=== PATIENT | female | born 1955 | race Native Hawaiian/Other Pacific Islander ===

== ENCOUNTER 2017-03-06 14:14 | Emergency (ER) | payer BC, MEDICAID ==
[2017-03-06 14:25] VITALS: BP 120/83
[2017-03-06] MEDS ORDERED: TETANUS/DIPHTHERIA/PERTUSSIS 0.5 ML SYRINGE IM ONE ×2 (15:29→15:41)
[2017-03-06] MEDS ORDERED: BUFFERED LIDOCAINE 10 ML SYRINGE ONE (15:34)
--- NOTE | 2017-03-06 15:54 | ED Physician Documentation ---
PD HPI UPPER EXT INJURY - Stated complaint Stated Complaint: R HAND LAC - Chief complaint Chief Complaint: Laceration - History obtained from History obtained from: Patient - History of Present Illness Location: Right, Hand Type of injury: Fall (GLF and hit hand on ground and lac on ?sharp rock), Laceration Timing - onset: Today Review of Systems Constitutional: reports: Reviewed and negative Throat: reports: Reviewed and negative Cardiac: reports: Reviewed and negative PD PAST MEDICAL HISTORY - Past Medical History Past Medical History: Yes GI: GERD - Past Surgical History Past Surgical History: Yes General: Cholecystectomy - Present Medications Home Medications: Ambulatory Orders Medication Instructions Recorded Confirmed Omeprazole [PriLOSEC] 20 mg PO DAILY 08/24/15 08/24/15 HYDROcod/ACETAM 5/325 [[place] 5/325] 1 - 2 ea PO Q6H PRN #15 tablet 09/18/16 Minocycline HCl 0 mg PO 09/18/16 - Allergies Allergies/Adverse Reactions: Allergies Allergy/AdvReac Type Severity Reaction Status Date / Time bee venom protein (honey bee) Allergy Edema Verified 03/06/17 14:26 codeine AdvReac Itching Verified 03/06/17 14:25 - Social History Does the pt smoke?: No Smoking Status: Never smoker Does the pt drink ETOH?: No Does the pt have substance abuse?: No - Immunizations Immunizations are current?: No Immunizations: TDAP >10years/unknown - POLST Patient has POLST: No PD ED PE NORMAL - Vitals Vital signs reviewed: Yes - General General: Alert and oriented X 3, No acute distress - Extremities Extremities: Other (3cm v-shaped lac into subq tissue in R hand themar area NVI in hand.) - Neuro Neuro: Alert and oriented X 3, Normal speech - Psych Psych: Normal mood, Normal affect Results - Vitals Vitals: Vital Signs - 24 hr 03/06/17 14:20 Temperature 36.5 C Heart Rate 95 Respiratory 18 Rate Blood Pressure 120/83 H O2 Saturation 99 Oxygen O2 Source Room air Procedures - Laceration (location) R hand Length in cm: 3 Wound type: Irregular, Flap, Into subcut fat Neurovascular status: Sensory intact, Motor intact, Vascular intact Tendon involvement: Tendon intact. No: Tendon Injury Anesthesia: Lidocaine 1%, With bicarb Wound Preparation: Irrigated copiously NS Skin layer closure: Nylon, Interrupted, Size #-0 - enter number (4-0), Sutures - enter # (8) Other: Patient tolerated well, No complications, Neurovascular intact, Tetanus booster given Complexity: Simple Departure - Departure Disposition: 01 Home, Self Care Clinical Impression: Hand laceration Qualifiers: Encounter type: initial encounter Foreign body presence: without foreign body Laterality: right Qualified Code(s): S61.411A - Laceration without foreign body of right hand, initial encounter Condition: Good Record reviewed to determine appropriate education?: Yes Instructions: ED Laceration Hand Comments: Wash the wound briefly but in general keep it dry and covered. Come back for any signs of infection which would include: Redness, swelling, drainage, increased pain, or fevers. Followup with your doctor in 10-14 days for suture removal. Your blood pressure was elevated today on check in to the emergency department. This does not mean that you have hypertension, it is a common phenomenon to check into the emergency department and have elevated blood pressure. I recommend that you see your primary care physician within the week to have it rechecked when you're feeling better.
== END 2017-03-06 16:14 | disposition home or self-care (01) ==
LOC: ED 14:14
DX: S61.411A Laceration without foreign body of right hand, initial encounter (principal); W19.XXXA Unspecified fall, initial encounter; K21.9 Gastro-esophageal reflux disease without esophagitis; Z90.49 Acquired absence of other specified parts of digestive tract; Z23 Encounter for immunization; R03.0 Elevated blood-pressure reading, without diagnosis of hypertension
CPT/HCPCS: 12002; 90471; 99283

== ENCOUNTER 2017-11-01 16:17 | Outpatient (CLI) | payer BC, MEDICAID ==
[2017-11-01 19:10] LABS: BASOPHILS % (AUTO) 0.5 %; EOSINOPHILS # (AUTO) 0.2 10^3/uL (0.0-0.7); EOSINOPHILS % (AUTO) 2.7 %; HGB - HEMOGLOBIN 13.4 g/dL (12.0-16.0); LYMPHOCYTES # (AUTO) 3.2 10^3/uL (1.5-3.5); LYMPHOCYTES % (AUTO) 46.8 %; MEAN CORPUSCULAR HEMOGLOBIN 28.4 pg (27.0-31.0); MEAN CORPUSCULAR HGB CONC 33.5 g/dL (32.0-36.0); MEAN PLATELET VOLUME 8.5 fL (7.9-10.8); MONOCYTES # (AUTO) 0.7 10^3/uL (0.0-1.0); MONOCYTES % (AUTO) 9.7 %; NEUTROPHILS # (AUTO) 2.8 10^3/uL (1.5-6.6); NEUTROPHILS % (AUTO) 40.3 %; PLT - PLATELET COUNT 266 10^3/uL (130-450); RED CELL DISTRIBUTION WIDTH 13.8 % (12.0-15.0); WHITE BLOOD COUNT 6.9 x10^3/uL (4.8-10.8)
[2017-11-01 19:37] LABS: ALBUMIN 4.1 g/dL (3.2-5.5); ALBUMIN/GLOBULIN RATIO 1.2 (1.0-2.2); ALKALINE PHOSPHATASE 72 IU/L (42-121); ALT ALANINE AMINOTRANSFERASE 19 IU/L (10-60); AST ASPARTATE AMINOTRANSFERASE 20 IU/L (10-42); BILIRUBIN,TOTAL 0.2 mg/dL (0.2-1.0); BUN - BLOOD UREA NITROGEN 24 mg/dL (6-20); CALCIUM 9.3 mg/dL (8.5-10.3); CARBON DIOXIDE - CO2 27 mmol/L (21-32); CHLORIDE 105 mmol/L (101-111); CHOL/HDL RATIO 4.4 (<4.4); CHOLESTEROL 242 mg/dL; CREATININE 0.7 mg/dL (0.4-1.0); GFR - MDRD 85 (>89); GLUCOSE 96 mg/dL (70-100); HDL CHOLESTEROL 55 mg/dL; LDL CHOLESTEROL,CALCULATED 135 mg/dL; LDL/HDL RATIO 2.5 (<4.4); SODIUM 138 mmol/L (135-145); TOTAL PROTEIN 7.4 g/dL (6.7-8.2); VLDL CHOLESTEROL 52 mg/dL
[2017-11-01 19:38] LABS: HEMOGLOBIN A1C 0.54 g/dL; HEMOGLOBIN A1C % 5.4 % (4.6-6.2)
== END 2017-11-01 16:18 | disposition home or self-care (01) ==
LOC: LAB.WCP 16:17
PROVIDERS: ATTEND Family Medicine
DX: Z00.00 Encounter for general adult medical examination without abnormal findings (principal)
CPT/HCPCS: 36415; 80053; 80061; 83036; 83721; 84443; 85025

== ENCOUNTER 2018-11-17 13:47 | Emergency (ER) | payer BC, MEDICAID ==
[2018-11-17 13:54] VITALS: BP 126/91
[2018-11-17] MEDS ORDERED: BUPIVACAINE 0.5% PF 10 ML VIAL SUBQ STA (14:07)
[2018-11-17] MEDS ORDERED: TRIAMCINOLONE 40 MG/ML VIAL IM STA (14:07)
--- NOTE | 2018-11-17 14:10 | ED Physician Documentation ---
PD HPI UPPER EXT INJURY - Stated complaint Stated Complaint: L SHOULDER PAIN - Chief complaint Chief Complaint: Trauma Ext - History obtained from History obtained from: Patient - History of Present Illness Location: Left (Is a 63-year-old woman with history of problems with the left rotator cuff. After doing some heavy work around the house 2 days ago she has much more significant shoulder pain and difficulty moving. She does not want any narcotic pain medication.) Review of Systems Constitutional: reports: Reviewed and negative Cardiac: reports: Reviewed and negative Respiratory: reports: Reviewed and negative PD PAST MEDICAL HISTORY - Past Medical History GI: GERD - Past Surgical History Past Surgical History: Yes General: Cholecystectomy - Present Medications Home Medications: Ambulatory Orders Medication Instructions Recorded Confirmed Omeprazole [PriLOSEC] 20 mg PO DAILY 08/24/15 08/24/15 HYDROcod/ACETAM 5/325 [[place] 5/325] 1 - 2 ea PO Q6H PRN #15 tablet 09/18/16 Minocycline HCl 0 mg PO 09/18/16 Meloxicam [Mobic] 7.5 mg PO BID PRN #20 tablet 11/17/18 - Allergies Allergies/Adverse Reactions: Allergies Allergy/AdvReac Type Severity Reaction Status Date / Time bee venom protein (honey bee) Allergy Edema Verified 11/17/18 13:54 codeine AdvReac Itching Verified 11/17/18 13:54 - Social History Does the pt smoke?: No Smoking Status: Never smoker Does the pt drink ETOH?: No Does the pt have substance abuse?: No - Immunizations Immunizations are current?: No Immunizations: TDAP >10years/unknown - POLST Patient has POLST: No PD ED PE NORMAL - Vitals Vital signs reviewed: Yes - General General: Alert and oriented X 3, No acute distress - Extremities Extremities: Other (There is no specific tenderness or warmth of the left shoulder. She does have significant difficulties with abduction but does much better passively.) - Neuro Neuro: Alert and oriented X 3, Normal speech Results - Vitals Vitals: Vital Signs - 24 hr 11/17/18 13:53 Temperature 36.7 C Heart Rate 86 Respiratory 16 Rate Blood Pressure 126/91 H O2 Saturation 100 Oxygen O2 Source Room air Procedures - General procedure General procedure: After discussion of risks and benefits and verbal informed consent was obtained a 22-gauge needle was used to inject a mixture of 10 mL of 0.5% Marcaine and 0.75 mL of Kenalog totaling 30 mg via a posterior approach to the left glenohumeral joint. The patient tolerated this well. Departure - Departure Disposition: 01 Home, Self Care Clinical Impression: Left rotator cuff tear arthropathy Condition: Good Record reviewed to determine appropriate education?: Yes Instructions: ED Torn Rotator Cuff Prescriptions: Meloxicam [Mobic] 7.5 mg PO BID PRN #20 tablet PRN Reason: Pain Comments: Follow-up with your orthopedic surgeon as soon as possible, return for new or worsening symptoms.
== END 2018-11-17 14:50 | disposition home or self-care (01) ==
LOC: ED 13:47
DX: M12.812 Other specific arthropathies, not elsewhere classified, left shoulder (principal)
CPT/HCPCS: 20610; 99283

== ENCOUNTER 2019-06-12 19:36 | Emergency (ER) | payer BC, MEDICAID ==
[2019-06-12 19:48] VITALS: BP 138/107
== END 2019-06-12 20:20 | disposition left against medical advice (07) ==
LOC: ED 19:36
DX: Z53.21 Procedure and treatment not carried out due to patient leaving prior to being seen by health care provider (principal)

== ENCOUNTER 2021-01-08 08:00 | Outpatient (CLI) | payer BC, OTHER ==
[2021-01-08 18:28] LABS: BASOPHILS % (AUTO) 0.7 %; EOSINOPHILS # (AUTO) 0.3 10^3/uL (0.0-0.7); EOSINOPHILS % (AUTO) 4.3 %; HCT - HEMATOCRIT 38.4 % (37.0-47.0); HGB - HEMOGLOBIN 12.7 g/dL (12.0-16.0); LYMPHOCYTES # (AUTO) 2.6 10^3/uL (1.5-3.5); LYMPHOCYTES % (AUTO) 42.6 %; MEAN CORPUSCULAR HEMOGLOBIN 29.5 pg (27.0-31.0); MEAN CORPUSCULAR HGB CONC 33.1 g/dL (32.0-36.0); MEAN CORPUSCULAR VOLUME 89.1 fL (81.0-99.0); MEAN PLATELET VOLUME 10.4 fL (7.9-10.8); MONOCYTES # (AUTO) 0.7 10^3/uL (0.0-1.0); NEUTROPHILS # (AUTO) 2.5 10^3/uL (1.5-6.6); NEUTROPHILS % (AUTO) 40.2 %; PLT - PLATELET COUNT 257 10^3/uL (130-450); RED BLOOD COUNT 4.31 10^6/uL (4.20-5.40); RED CELL DISTRIBUTION WIDTH 13.2 % (12.0-15.0); WHITE BLOOD COUNT 6.1 x10^3/uL (4.8-10.8)
[2021-01-08 19:28] LABS: ALBUMIN 4.3 g/dL (3.2-5.5); ALBUMIN/GLOBULIN RATIO 1.7 (1.0-2.2); ALKALINE PHOSPHATASE 64 IU/L (42-121); ALT ALANINE AMINOTRANSFERASE 19 IU/L (10-60); AST ASPARTATE AMINOTRANSFERASE 24 IU/L (10-42); BILIRUBIN,TOTAL 0.5 mg/dL (0.2-1.0); BUN - BLOOD UREA NITROGEN 23 mg/dL (6-20); CALCIUM 9.6 mg/dL (8.5-10.3); CARBON DIOXIDE - CO2 25 mmol/L (21-32); CHLORIDE 110 mmol/L (101-111); CHOL/HDL RATIO 3.4 (<4.4); CHOLESTEROL 259 mg/dL; CREATININE 0.6 mg/dL (0.4-1.0); GFR - MDRD 101 (>89); GLUCOSE 90 mg/dL (70-100); HDL CHOLESTEROL 77 mg/dL; LDL CHOLESTEROL,CALCULATED 163 mg/dL; LDL/HDL RATIO 2.1 (<4.4); POTASSIUM 4.2 mmol/L (3.5-5.0); SODIUM 145 mmol/L (135-145); TOTAL PROTEIN 6.9 g/dL (6.7-8.2); TRIGLYCERIDES 95 mg/dL; VLDL CHOLESTEROL 19 mg/dL
[2021-01-08 19:47] LABS: THYROID STIMULATING HORMONE 4.81 uIU/mL (0.34-5.60)
[2021-01-08 20:01] LABS: CRP - C-REACTIVE PROTEIN < 1.0 mg/dL (0-1.0)
[2021-01-08 20:42] LABS: ESTIMATED AVERAGE GLUCOSE 108 mg/dL (70-100); HEMOGLOBIN A1c% 5.4 % (4.27-6.07)
== END 2021-01-08 23:59 | disposition home or self-care (01) ==
LOC: LAB.WCP 08:00
PROVIDERS: ATTEND Family Medicine
DX: E78.5 Hyperlipidemia, unspecified (principal); E66.9 Obesity, unspecified; R94.6 Abnormal results of thyroid function studies; K21.9 Gastro-esophageal reflux disease without esophagitis; M06.9 Rheumatoid arthritis, unspecified
CPT/HCPCS: 36415; 80053; 80061; 83036; 83721; 84443; 85025; 85651; 86140

== ENCOUNTER 2021-03-10 10:49 | Outpatient (CLI) | payer BC, MEDICARE | END 2021-03-10 10:50 | disposition home or self-care (01) | LOC: LAB 10:49 | PROVIDERS: ATTEND Physician Assistant | DX: Z01.812 Encounter for preprocedural laboratory examination (principal); Z20.822 Contact with and (suspected) exposure to COVID-19 ==

== ENCOUNTER 2021-07-08 20:04 | Emergency (ER) | payer BC, MEDICARE ==
[2021-07-08 20:28] VITALS: BP 131/84
--- NOTE | 2021-07-08 21:28 | ED Physician Documentation ---
History of Present Illness - Stated complaint Stated Complaint: LT FOOT INJ - Chief complaint Chief Complaint: Trauma Ext - History obtained from History obtained from: Patient - Additonal information Additional information: Patient states that she tripped and fell cleaning out her dog canal today and sustained a left foot injury. She is unsure exactly what happened but states that she is now nonweightbearing and has quite severe pain over the top of the left foot and the left ankle. Denies any other injuries, no head injury, neck injury upper extremity injuries. She has not attempted any medication or other treatment prior to arrival. Patient notes that she just recently returned from [place] today and states that she did not have any pain or swelling of the leg prior to this injury. Review of Systems Constitutional: reports: Reviewed and negative Cardiac: reports: Reviewed and negative Respiratory: reports: Reviewed and negative GI: reports: Reviewed and negative : reports: Reviewed and negative Skin: reports: Reviewed and negative Musculoskeletal: reports: Extremity pain (left foot and ankle pain) Neurologic: reports: Reviewed and negative Psychiatric: reports: Reviewed and negative PD PAST MEDICAL HISTORY - Past Medical History GI: GERD - Past Surgical History Past Surgical History: Yes General: Cholecystectomy - Present Medications Home Medications: Ambulatory Orders Medication Instructions Recorded Confirmed Omeprazole [PriLOSEC] 20 mg PO DAILY 08/24/15 08/24/15 HYDROcod/ACETAM 5/325 [[place] 5/325] 1 - 2 ea PO Q6H PRN #15 tablet 09/18/16 Minocycline HCl 0 mg PO 09/18/16 Meloxicam [Mobic] 7.5 mg PO BID PRN #20 tablet 11/17/18 oxyCODONE [Roxicodone] 5 mg PO Q4-6H #12 tablet 07/08/21 - Allergies Allergies/Adverse Reactions: Allergies Allergy/AdvReac Type Severity Reaction Status Date / Time bee venom protein (honey bee) Allergy Edema Verified 07/08/21 20:28 bupropion [From Wellbutrin] Allergy Unknown Verified 07/08/21 20:28 codeine AdvReac Itching Verified 07/08/21 20:28 - Social History Does the pt smoke?: No Smoking Status: Never smoker Does the pt drink ETOH?: No Does the pt have substance abuse?: No - Immunizations Immunizations are current?: No Immunizations: TDAP >10years/unknown - POLST Patient has POLST: No PD ED PE NORMAL - Vitals Vital signs reviewed: Yes - General General: Alert and oriented X 3, No acute distress, Well developed/nourished - HEENT HEENT: Atraumatic, Moist mucous membranes - Cardiac Cardiac: RRR, No murmur - Respiratory Respiratory: No respiratory distress, Clear bilaterally - Derm Derm: Normal color, Warm and dry, No rash - Extremities Extremities: No deformity, No calf tenderness / cord, Other (Left foot and ankle swelling, no erythema. Tenderness left lat malleolus and across the dorsum of the foot. No obvious deformities, pulses 2+, foot in normothermic. Moves toes w/o difficulty, no other extremity injuries) - Neuro Neuro: Alert and oriented X 3, No motor deficit, No sensory deficit, Normal speech Eye Opening: Spontaneous Motor: Obeys Commands Verbal: Oriented GCS Score: 15 - Psych Psych: Normal mood, Normal affect Results - Vitals Vitals: Vital Signs - 24 hr 07/08/21 20:24 Temperature 36.5 C Heart Rate 68 Respiratory 14 Rate Blood Pressure 131/84 H O2 Saturation 99 Oxygen O2 Source Room air PD MEDICAL DECISION MAKING - ED course Complexity details: reviewed results, considered differential, d/w patient ED course: 66-year-old female who presented with left foot pain after a fall. She has pain over the dorsum of the foot and the left lateral malleolus. I obtained a x-ray of her ankle and foot and this showed possible avulsion fracture of the talus and medial malleolus. She was given a dose of oxycodone here as well as 600 mg of ibuprofen with some improvement in her pain. We placed her in a splint and advised to keep her foot elevated, utilize cool compress and follow-up with her primary care provider if no improvement in 1 to 2 weeks. Patient states intention to follow-up with orthopedic surgeon in [place] if possible. Departure - Departure Disposition: 01 Home, Self Care Clinical Impression: Talar fracture Qualifiers: Encounter type: initial encounter Fracture type: closed Fracture morphology: avulsion Fracture alignment: nondisplaced Laterality: left Qualified Code(s): S92.155A - Nondisplaced avulsion fracture (chip fracture) of left talus, initial encounter for closed fracture Medial malleolar fracture Qualifiers: Encounter type: initial encounter Fracture type: closed Fracture alignment: nondisplaced Laterality: left Qualified Code(s): S82.55XA - Nondisplaced fracture of medial malleolus of left tibia, initial encounter for closed fracture Condition: Good Instructions: ED Fx Foot, ED Splint Care Fiberglass Follow-Up: Cecile Villa MD [Physician No Access] - Manuelito Lopez MD [Provider Admit Priv/Credential] - Prescriptions: oxyCODONE [Roxicodone] 5 mg PO Q4-6H #12 tablet Comments: As we discussed you sustained a small avulsion fracture of the talus as well as likely the medial malleolus. I have placed you in a splint and advised you not to weight-bear until you follow-up with Ortho. Per your request we referred you to Dr. Villa but I have also referred you to the local orthopedic surgeon Dr. Lopez if you are unable to get to [place]. Please utilize crutches, do not weight-bear, keep foot elevated whenever possible and utilize cool compress for the next 2 to 3 days to help with the swelling. I have given you a prescription for oxycodone and you may continue ibuprofen at home as well. Oxycodone is a narcotic and can be habit-forming, you should not drive or operate heavy machinery on this medication, do not drink or take other respiratory suppressants simultaneously due to risk of respiratory distress. Return to the ER if you have new or worsening symptoms.
[2021-07-08] MEDS ORDERED: IBUPROFEN 600 MG TABLET PO STA (22:17)
[2021-07-08] MEDS ORDERED: oxyCODONE 5 MG TABLET PO STA (22:17)
[2021-07-08] MEDS ORDERED: oxyCODONE/ACET 5/325 Prepack 4 PO STA (22:19)
--- NOTE | 2021-07-08 22:35 | XRAY Report ---
PROCEDURE: Ankle 3 View LT INDICATIONS: fall, injury, nwb TECHNIQUE: 3 views of the ankle were acquired. COMPARISON: None FINDINGS: Bones: Possible tiny minimally displaced fragments off the lateral talus and distal medial malleolar spur. Ankle mortise is normally aligned. No suspicious bony lesions. Soft tissues: No tibiotalar joint effusion. Achilles tendon appears normal. IMPRESSION: Probable lateral talar minimally displaced fracture and possible fracture of the medial malleolar spur. Reviewed by: Sindy Gaspar MD on 07/08/2021 10:34 PM PDT Approved by: Sindy Gaspar MD on 07/08/2021 10:34 PM PDT Station ID: [id number]
--- NOTE | 2021-07-08 22:37 | XRAY Report ---
PROCEDURE: Foot 3 View LT INDICATIONS: fall, injury, nwb TECHNIQUE: 3 views of the foot were acquired. COMPARISON: No FINDINGS: Bones: No fractures or dislocations. Mild degenerative change at the first MTP joint. No suspicious bony lesions. Soft tissues: No tibiotalar joint effusion. Achilles tendon appears normal. IMPRESSION: 1. No visible fracture. 2. Mild degenerative change. Reviewed by: Sindy Gaspar MD on 07/08/2021 10:36 PM PDT Approved by: Sindy Gaspar MD on 07/08/2021 10:36 PM PDT Station ID: [id number]
== END 2021-07-08 23:15 | disposition home or self-care (01) ==
LOC: ED 20:04
DX: S92.155A Nondisplaced avulsion fracture (chip fracture) of left talus, initial encounter for closed fracture (principal); S82.55XA Nondisplaced fracture of medial malleolus of left tibia, initial encounter for closed fracture; W01.0XXA Fall on same level from slipping, tripping and stumbling without subsequent striking against object, initial encounter; Y93.89 Activity, other specified
CPT/HCPCS: 73610; 73630; 99283; A9270

== ENCOUNTER 2022-04-17 08:00 | Outpatient (CLI) | payer MEDICARE, BC ==
[2022-04-17 21:15] LABS: BILIRUBIN,URINE NEGATIVE (NEGATIVE); GLUCOSE, URINE (UA) NEGATIVE (NEGATIVE); KETONES,URINE (UA) NEGATIVE (NEGATIVE); LEUKOCYTE ESTERASE, URINE NEGATIVE (NEGATIVE); NITRITE,URINE NEGATIVE (NEGATIVE); OCCULT BLOOD,URINE NEGATIVE (NEGATIVE); PROTEIN,URINE NEGATIVE (NEGATIVE); UROBILINOGEN,URINE 0.2 (NORMAL) E.U./dL (NORMAL)
[2022-04-17 21:17] LABS: CLARITY,URINE CLEAR (CLEAR)
[2022-04-17 21:48] LABS: BACTERIA,URINE Rare /HPF (None Seen); RBC,URINE 0-5 /HPF (0-5); SQUAMOUS EPITHELIAL CELL,UR NONE SEEN (<= Few)
== END 2022-04-17 23:59 | disposition home or self-care (01) ==
LOC: LAB.N 08:00
PROVIDERS: ATTEND Emergency Medicine
DX: R39.15 Urgency of urination (principal)
CPT/HCPCS: 81001; 87086

== ENCOUNTER 2023-06-10 15:54 | Outpatient (CLI) | payer MEDICARE, BC ==
[2023-06-10 17:35] LABS: BASOPHILS # (AUTO) 0.1 10^3/uL (0.0-0.1); BASOPHILS % (AUTO) 1.1 %; EOSINOPHILS # (AUTO) 0.2 10^3/uL (0.0-0.7); EOSINOPHILS % (AUTO) 3.3 %; HCT - HEMATOCRIT 37.8 % (37.0-47.0); HGB - HEMOGLOBIN 12.4 g/dL (12.0-16.0); LYMPHOCYTES # (AUTO) 2.7 10^3/uL (1.5-3.5); LYMPHOCYTES % (AUTO) 40.1 %; MEAN CORPUSCULAR HEMOGLOBIN 29.4 pg (27.0-31.0); MEAN CORPUSCULAR HGB CONC 32.8 g/dL (32.0-36.0); MEAN CORPUSCULAR VOLUME 89.6 fL (81.0-99.0); MONOCYTES # (AUTO) 0.7 10^3/uL (0.0-1.0); MONOCYTES % (AUTO) 10.6 %; NEUTROPHILS % (AUTO) 44.6 %; PLT - PLATELET COUNT 302 10^3/uL (130-450); RED BLOOD COUNT 4.22 10^6/uL (4.20-5.40); WHITE BLOOD COUNT 6.6 x10^3/uL (4.8-10.8)
[2023-06-10 17:51] LABS: ALBUMIN 4.3 g/dL (3.2-5.5); ALBUMIN/GLOBULIN RATIO 1.7 (1.0-2.2); ALKALINE PHOSPHATASE 62 IU/L (42-121); ALT ALANINE AMINOTRANSFERASE 18 IU/L (10-60); AST ASPARTATE AMINOTRANSFERASE 21 IU/L (10-42); BILIRUBIN,TOTAL 0.3 mg/dL (0.2-1.0); BUN - BLOOD UREA NITROGEN 24 mg/dL (6-20); CALCIUM 9.3 mg/dL (8.5-10.3); CARBON DIOXIDE - CO2 28 mmol/L (21-32); CHLORIDE 107 mmol/L (101-111); CHOL/HDL RATIO 3.2 (<4.4); CHOLESTEROL 237 mg/dL; CREATININE 0.9 mg/dL (0.6-1.3); GFR - MDRD 62 (>89); GLUCOSE 106 mg/dL (74-104); HDL CHOLESTEROL 73 mg/dL; LDL CHOLESTEROL,CALCULATED 146 mg/dL; POTASSIUM 4.4 mmol/L (3.5-4.5); SODIUM 140 mmol/L (135-145); TOTAL PROTEIN 6.8 g/dL (6.4-8.9); TRIGLYCERIDES 92 mg/dL (48-352); VLDL CHOLESTEROL 18 mg/dL
[2023-06-10 18:00] LABS: THYROID STIMULATING HORMONE 4.47 uIU/mL (0.34-5.60)
[2023-06-10 18:08] LABS: ESTIMATED AVERAGE GLUCOSE 105 mg/dL (70-100); HEMOGLOBIN A1c% 5.3 % (4.27-6.07)
== END 2023-06-10 15:55 | disposition home or self-care (01) ==
LOC: LAB.N 15:54
PROVIDERS: ATTEND Nurse Practitioner Family
DX: Z00.00 Encounter for general adult medical examination without abnormal findings (principal); E78.5 Hyperlipidemia, unspecified
CPT/HCPCS: 36415; 80053; 80061; 83036; 83721; 84443; 85025

== ENCOUNTER 2023-06-28 16:47 | Emergency (ER) | payer MEDICARE, BC ==
--- OUTSIDE RECORDS SUMMARY | 2023-06-28 17:11 | EXTERNAL MEDICAL SUMMARY RPT | Continuity of Care Document ---
Author Name Unknown Address [address] [place] [address] Phone Organization [facility] Address [address] [place] [address] Phone Allergies and Intolerances date description facility reaction severity 2023-04-13 15:27:31 [facility] (no reactio n) (no severity) Problems date description facility 2023-04-13 15:27 Mixed incontinence [facility] Social History date description facility 2023-06-15 00:00 Never smoked tobacco ([facility]) [facility] Vital Signs date measurement value units 2023-06-15 00:00 BMI 31.9 kg/m2 2023-06-15 00:00 BP_diastolic 86 mmHg 2023-06-15 00:00 BP_systolic 121 mmHg 2023-06-15 00:00 heart_rate 78 /min 2023-06-15 00:00 height_metric 167.64 cm 2023-06-15 00:00 height_standard 66 in 2023-06-15 00:00 o2_saturation 98 % 2023-06-15 00:00 respiration_rate 12 /min 2023-06-15 00:00 weight_metric 89.81 kg 2023-06-15 00:00 weight_standard 198 lb
[2023-06-28 17:18] LABS: BASOPHILS # (AUTO) 0.1 10^3/uL (0.0-0.1); BASOPHILS % (AUTO) 0.7 %; EOSINOPHILS # (AUTO) 0.2 10^3/uL (0.0-0.7); EOSINOPHILS % (AUTO) 2.5 %; HCT - HEMATOCRIT 37.3 % (37.0-47.0); HGB - HEMOGLOBIN 12.4 g/dL (12.0-16.0); LYMPHOCYTES # (AUTO) 2.2 10^3/uL (1.5-3.5); LYMPHOCYTES % (AUTO) 32.1 %; MEAN CORPUSCULAR HEMOGLOBIN 29.7 pg (27.0-31.0); MEAN CORPUSCULAR HGB CONC 33.2 g/dL (32.0-36.0); MEAN CORPUSCULAR VOLUME 89.2 fL (81.0-99.0); MEAN PLATELET VOLUME 9.6 fL (7.9-10.8); MONOCYTES # (AUTO) 0.5 10^3/uL (0.0-1.0); MONOCYTES % (AUTO) 7.8 %; NEUTROPHILS # (AUTO) 3.9 10^3/uL (1.5-6.6); NEUTROPHILS % (AUTO) 56.8 %; PLT - PLATELET COUNT 275 10^3/uL (130-450); RED BLOOD COUNT 4.18 10^6/uL (4.20-5.40); RED CELL DISTRIBUTION WIDTH 13.2 % (12.0-15.0); WHITE BLOOD COUNT 6.9 x10^3/uL (4.8-10.8)
[2023-06-28 17:33] LABS: ALBUMIN 4.3 g/dL (3.2-5.5); ALBUMIN/GLOBULIN RATIO 1.9 (1.0-2.2); BILIRUBIN,TOTAL 0.3 mg/dL (0.2-1.0); CALCIUM 9.3 mg/dL (8.5-10.3); TOTAL PROTEIN 6.6 g/dL (6.4-8.9)
--- NOTE | 2023-06-28 17:46 | ED Physician Documentation ---
PD HPI ABD PAIN - Stated complaint Stated Complaint: GI/ABD PX - Chief complaint Chief Complaint: Abd Pain - History obtained from History obtained from: Patient - Additional information Additional information: Relatively healthy 68-year-old woman who had findings of polyps and diverticula on colonoscopy done at [facility] last year developed some cramping in the lower abdomen last night and today had a large episode of hematochezia at 3 PM which has not recurred since. She had her gallbladder out. Denies fevers or chills. Pain is not severe. PD PAST MEDICAL HISTORY - Past Medical History Past Medical History: Yes GI: GERD Psych: Anxiety - Past Surgical History Past Surgical History: Yes General: Cholecystectomy - Present Medications Home Medications: Ambulatory Orders Medication Instructions Recorded Confirmed Omeprazole [PriLOSEC] 20 mg PO DAILY 08/24/15 06/28/23 Minocycline HCl 50 mg PO PRN PRN 09/18/16 06/28/23 Amox/Clav 875/125 [Augmentin] 1 each PO Q12H #14 tablet 06/28/23 Diclofenac Sodium 50 mg PO DAILY 06/28/23 06/28/23 Metoclopramide [Reglan] 10 mg PO Q6H PRN #20 tablet 06/28/23 Triazolam 0.25 mg PO DAILY 06/28/23 06/28/23 Zolpidem [Ambien] 10 mg PO HS 06/28/23 06/28/23 - Allergies Allergies/Adverse Reactions: Allergies Allergy/AdvReac Type Severity Reaction Status Date / Time bee venom protein (honey bee) Allergy Edema Verified 07/08/21 20:28 bupropion [From Wellbutrin] Allergy Unknown Verified 07/08/21 20:28 codeine AdvReac Itching Verified 07/08/21 20:28 - Social History Does the pt smoke?: No Smoking Status: Never smoker Does the pt drink ETOH?: No Does the pt have substance abuse?: No - Immunizations Immunizations are current?: No Immunizations: TDAP >10years/unknown - POLST Patient has POLST: No PD ED PE NORMAL - Vitals Vital signs reviewed: Yes - General General: Alert and oriented X 3, No acute distress - Abdomen Abdomen: Normal bowel sounds, Soft, Other (Mild left lower quadrant tenderness without surgical signs) - Neuro Neuro: Alert and oriented X 3, Normal speech Results - Vitals Vitals: Vital Signs - 24 hr 10/09/23 10/09/23 16:52 18:19 Temperature 37 C Heart Rate 86 76 Respiratory 18 16 Rate Blood Pressure 119/84 H 126/78 O2 Saturation 95 97 Oxygen O2 Source Room air - Labs Labs: Laboratory Tests 06/28/23 06/28/23 17:09 17:09 WBC 6.9 RBC 4.18 L Hgb 12.4 Hct 37.3 MCV 89.2 MCH 29.7 MCHC 33.2 RDW 13.2 Plt Count 275 MPV 9.6 Neut # (Auto) 3.9 Lymph # (Auto) 2.2 [place] # (Auto) 0.5 Eos # (Auto) 0.2 Baso # (Auto) 0.1 Absolute Nucleated RBC 0.00 Nucleated RBC % 0.0 Sodium 142 Potassium 4.0 Chloride 109 Carbon Dioxide 24 Anion Gap 9.0 BUN 25 H Creatinine 1.0 Estimated GFR (MDRD) 55 L Glucose 99 Calcium 9.3 Total Bilirubin 0.3 AST 20 ALT 16 Alkaline Phosphatase 62 Total Protein 6.6 Albumin 4.3 Globulin 2.3 Albumin/Globulin Ratio 1.9 Lipase 54 - Rads (name of study) CT a/p Relevant Findings:: Final report received, EMP independent interpretation of test PD Medical Decision Making - ED course ED course: 68-year-old woman presents with what sounds like a resolved diverticular bleed. She has known diverticula and had a single large episode of hematochezia today. Her blood counts are reassuring with relatively normal CMP. CT showing findings concerning for gastric outlet obstruction. She says she has longstanding early satiety and bloating which was worked up with an EGD that was negative last year but advise repeating it. Departure - Departure Disposition: 01 Home, Self Care Clinical Impression: Lower GI bleed, Gastric dilation Condition: Good Record reviewed to determine appropriate education?: Yes Instructions: ED Hematochezia Stable Prescriptions: Amox/Clav 875/125 [Augmentin] 1 each PO Q12H #14 tablet Metoclopramide [Reglan] 10 mg PO Q6H PRN #20 tablet PRN Reason: nausea or headache Comments: You were seen today for lower abdominal pain and 1 episode of bright red blood per rectum. This is most consistent with a diverticular bleed. We did a CT scan which was actually more concerning for gastric outlet obstruction with a dilated stomach. For the bleeding I am prescribing antibiotics and your blood counts are looking fine. For the gastric outlet obstruction you should follow-up with the doctor who did your endoscopies last year and consider repeating. Given that you are planning to have urologic surgery later this week, you should call your surgeon and discuss, the gastric outlet obstruction may increase your risk of aspiration during the procedure and they may recommend either a longer prep with 24 hours of clear liquids even before being "n.p.o." or delaying the procedure until the gastric outlet obstruction is further worked up. I am also prescribing a medication called Reglan which may help empty your stomach. Return if worse. Forms: PCP List
[2023-06-28 18:28] VITALS: BP 126/78; O2SAT 97
--- NOTE | 2023-06-28 19:03 | CT Report ---
PROCEDURE: ABDOMEN/PELVIS W INDICATIONS: iv only, llq pain hematochezia CONTRAST: 100mL Omni 300 TECHNIQUE: After the administration of intravenous contrast, 5 mm thick sections acquired from the diaphragms to the symphysis. 5 mm thick coronal and sagittal reformats were acquired. For radiation dose reducti on, the following was used: automated exposure control, adjustment of mA and/or kV according to [place] ent size. COMPARISON: None FINDINGS: Image quality: Excellent. Lung bases and heart: Unremarkable. Liver: No solid mass. Gallbladder and biliary tree: No biliary ductal dilatation. Gallbladder surgically absent. Spleen: No splenomegaly. Pancreas: No pancreatic ductal dilation. Adrenals: No adrenal nodule. Kidneys and ureters: No hydronephrosis. No renal cystic lesion which requires follow up. No solid mas s. Bowel and peritoneum: Moderate distention of the gastric lumen. Large amount of debris within the gas tric lumen. Small bowel and colon are within normal limits. Appendix is not seen. No evidence of appe ndicitis. Lymph nodes: No central or retroperitoneal adenopathy. Vessels: No infrarenal aortic aneurysm. PELVIS Reproductive organs: Unremarkable. Bladder: No abnormal wall thickening, accounting for underdistension. Pelvic lymph nodes: No pelvic adenopathy by size criteria. Bones: No aggressive osseous abnormality. Other: No significant ventral or inguinal hernia. IMPRESSION: 1. Gastric outlet obstruction. Further assessment with endoscopy is recommended to exclude underlying neoplasm. 2. Appendix not seen. No evidence of appendicitis. Reviewed by: Nadege Markham MD on 06/28/2023 7:01 PM PDT Approved by: Nadege Markham MD on 06/28/2023 7:01 PM PDT Station ID: [id number]
[2023-06-28] MEDS ORDERED: AMOX/CLAV 875 MG/125 MG TABLET PO STA (19:14)
[2023-06-28] MEDS ORDERED: METOCLOPRAMIDE 10 MG/2 ML VIAL IVP STA (19:14)
[2023-06-28] MEDS ORDERED: iohexoL-300 100 ML VIAL IVP ONE (19:15)
[2023-06-28 19:17] LABS: BILIRUBIN,URINE NEGATIVE (NEGATIVE); GLUCOSE, URINE (UA) NEGATIVE (NEGATIVE); KETONES,URINE (UA) NEGATIVE (NEGATIVE); LEUKOCYTE ESTERASE, URINE NEGATIVE (NEGATIVE); NITRITE,URINE NEGATIVE (NEGATIVE); OCCULT BLOOD,URINE NEGATIVE (NEGATIVE); PH,URINE 6.5 PH (5.0-7.5); PROTEIN,URINE NEGATIVE (NEGATIVE); UROBILINOGEN,URINE 0.2 (NORMAL) E.U./dL (NORMAL)
[2023-06-28 19:21] LABS: CLARITY,URINE CLEAR (CLEAR)
== END 2023-06-28 19:41 | disposition home or self-care (01) ==
LOC: ED 16:47
DX: K92.2 Gastrointestinal hemorrhage, unspecified (principal); K31.89 Other diseases of stomach and duodenum
CPT/HCPCS: 36415; 74177; 80053; 81003; 83690; 85025; 96374; 99284; A9270; J2765; Q9967; 81001; 87086

== ENCOUNTER 2024-01-17 12:16 | Outpatient (CLI) | payer MEDICARE, BC ==
--- NOTE | 2024-01-17 13:37 | DEXA Report ---
PROCEDURE: Dexa Spine and/or Hip INDICATIONS: POST MENOPAUSAL TECHNIQUE: Dual energy x-ray absorptiometry (DXA) was performed on a INNFOCUS System. Regions measur ed are the AP Spine, femoral neck, and if needed forearm. COMPARISON: None FINDINGS: Lumbar Spine: Bone Mineral Density: 1.031 g/cm/cm,T score: -1.2. Left Femoral Neck: Bone Mineral Density: 0.962 g/cm/cm, T score: -0.5. Left Hip: Bone Mineral Density: 1.051 g/cm/cm,T score: 0.3. (T score greater or equal to -1.0: NORMAL) (T score from -1.1 to -2.4: OSTEOPENIA) (T score less than or equal to -2.5 to: OSTEOPOROSIS) Impression: By WHO criteria, this patient has normal bone density. Patients with diagnosis of osteoporosis or osteopenia should have regular bone mineral density assess ment. For those eligible for Medicare, routine testing is allowed once every 2 years. Testing frequ ency can be increased for patients who have rapidly progressing disease or for those who are receivin g medical therapy to restore bone mass. Reviewed by: Luke Munoz MD on 01/17/2024 1:36 PM PDT Approved by: Luke Munoz MD on 01/17/2024 1:36 PM PDT Station ID: [id number]
== END 2024-01-17 12:17 | disposition home or self-care (01) ==
LOC: DI 12:16
PROVIDERS: ATTEND Nurse Practitioner Family
DX: M85.88 Other specified disorders of bone density and structure, other site (principal); Z78.0 Asymptomatic menopausal state

== ENCOUNTER 2024-03-02 16:32 | Emergency (ER) | payer MEDICARE, BC ==
[2024-03-02 19:25] LABS: BASOPHILS % (AUTO) 0.6 %; EOSINOPHILS # (AUTO) 0.1 10^3/uL (0.0-0.7); EOSINOPHILS % (AUTO) 1.6 %; HCT - HEMATOCRIT 38.5 % (37.0-47.0); HGB - HEMOGLOBIN 13.1 g/dL (12.0-16.0); LYMPHOCYTES # (AUTO) 2.8 10^3/uL (1.5-3.5); LYMPHOCYTES % (AUTO) 39.7 %; MEAN CORPUSCULAR HEMOGLOBIN 30.2 pg (27.0-31.0); MEAN CORPUSCULAR VOLUME 88.7 fL (81.0-99.0); MEAN PLATELET VOLUME 8.7 fL (7.9-10.8); MONOCYTES # (AUTO) 0.9 10^3/uL (0.0-1.0); MONOCYTES % (AUTO) 12.2 %; NEUTROPHILS # (AUTO) 3.2 10^3/uL (1.5-6.6); NEUTROPHILS % (AUTO) 45.6 %; PLT - PLATELET COUNT 280 10^3/uL (130-450); RED BLOOD COUNT 4.34 10^6/uL (4.20-5.40); WHITE BLOOD COUNT 7.1 x10^3/uL (4.8-10.8)
[2024-03-02 19:34] LABS: MAGNESIUM 1.9 mg/dL (1.7-2.3)
[2024-03-02 19:35] VITALS: BP 149/100; O2SAT 99
[2024-03-02 19:40] LABS: ALBUMIN 4.5 g/dL (3.2-5.5); ALBUMIN/GLOBULIN RATIO 1.5 (1.0-2.2); BILIRUBIN,TOTAL 0.4 mg/dL (0.2-1.0); CALCIUM 9.5 mg/dL (8.5-10.3); CREATININE 0.7 mg/dL (0.6-1.3); POTASSIUM 4.2 mmol/L (3.5-4.5); TOTAL PROTEIN 7.5 g/dL (6.4-8.9)
--- NOTE | 2024-03-02 20:13 | CT Report ---
PROCEDURE: Head WO INDICATIONS: GLF, head injury TECHNIQUE: Noncontrast 4.5 mm thick angled axial sections acquired from the foramen magnum to the vertex. For r adiation dose reduction, the following was used: automated exposure control, adjustment of mA and/or kV according to patient size. COMPARISON: CT head 09/18/2016. FINDINGS: Image quality: Excellent. CSF spaces: Basal cisterns are patent. No extra-axial fluid collections. Ventricles are normal in size and shape. Brain: No midline shift. No intracranial masses or hemorrhage. Robins-white matter interface is norm al. Skull and face: Calvarium and visualized facial bones are intact, without suspicious lesions. Sinuses: Visualized sinuses and mastoids are clear. IMPRESSION: No acute intracranial pathology. Reviewed by: Paris Carrillo MD, PhD on 03/02/2024 8:11 PM PDT Approved by: Paris Carrillo MD, PhD on 03/02/2024 8:11 PM PDT Station ID: [id number]
--- NOTE | 2024-03-02 20:56 | ED Physician Documentation ---
History of Present Illness - Stated complaint Stated Complaint: FALL/DIZZY/VOMIT - Chief complaint Chief Complaint: Neuro - History obtained from History obtained from: Patient - Additonal information Additional information: 68-year-old woman presents status post trip and fall hitting her left brow line around 3 AM with loss of consciousness. She did have an episode of vomiting since then. Denies vision changes, confusion. Tetanus is up-to-date. PD PAST MEDICAL HISTORY - Past Medical History Past Medical History: Yes Cardiovascular: None Respiratory: None Neuro: None Endocrine/Autoimmune: None GI: GERD LOGISTICS TECH: None : None HEENT: None Psych: Anxiety Musculoskeletal: None Derm: None - Past Surgical History Past Surgical History: Yes General: Cholecystectomy - Present Medications Home Medications: Ambulatory Orders Medication Instructions Recorded Confirmed Omeprazole [PriLOSEC] 20 mg PO DAILY 08/24/15 06/28/23 Triazolam 0.25 mg PO DAILY 06/28/23 06/28/23 Zolpidem [Ambien] 10 mg PO HS 06/28/23 06/28/23 FLUoxetine [PROzac] 40 mg PO DAILY 03/02/24 Vibegron [Gemtesa] 75 mg PO DAILY 03/02/24 - Allergies Allergies/Adverse Reactions: Allergies Allergy/AdvReac Type Severity Reaction Status Date / Time bee venom protein (honey bee) Allergy Edema Verified 03/02/24 17:33 bupropion [From Wellbutrin] Allergy Unknown Verified 03/02/24 17:33 codeine AdvReac Itching Verified 03/02/24 17:33 - Social History Does the pt smoke?: No Smoking Status: Never smoker Does the pt drink ETOH?: No Does the pt have substance abuse?: No - Immunizations Immunizations are current?: No Immunizations: TDAP >10years/unknown - POLST Patient has POLST: No PD ED PE NORMAL - Vitals Vital signs reviewed: Yes - General General: Alert and oriented X 3, No acute distress, Well developed/nourished - HEENT HEENT: Atraumatic, PERRL, EOMI, Moist mucous membranes, Pharynx benign, Other (2 cm laceration above left brow line, well-approximated) - Neck Neck: No bony TTP - Cardiac Cardiac: RRR - Respiratory Respiratory: No respiratory distress, Clear bilaterally - Abdomen Abdomen: Non tender, Non distended - Derm Derm: Normal color, Warm and dry - Neuro Neuro: Alert and oriented X 3, 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, No motor deficit, No sensory deficit Eye Opening: Spontaneous Motor: Obeys Commands Verbal: Oriented GCS Score: 15 Results - Vitals Vitals: Vital Signs - 24 hr 03/02/24 03/02/24 17:23 19:34 Temperature 36.3 C L Heart Rate 81 68 Respiratory 16 16 Rate Blood Pressure 123/72 149/100 H O2 Saturation 97 99 Oxygen O2 Source Room air - Labs Labs: Laboratory Tests 03/02/24 03/02/24 19:20 19:20 WBC 7.1 RBC 4.34 Hgb 13.1 Hct 38.5 MCV 88.7 MCH 30.2 MCHC 34.0 RDW 13.0 Plt Count 280 MPV 8.7 Neut # (Auto) 3.2 Lymph # (Auto) 2.8 Jones # (Auto) 0.9 Eos # (Auto) 0.1 Baso # (Auto) 0.0 Absolute Nucleated RBC 0.00 Nucleated RBC % 0.0 Sodium 140 Potassium 4.2 Chloride 103 Carbon Dioxide 31 Anion Gap 6.0 BUN 19 Creatinine 0.7 Estimated GFR (MDRD) 83 L Glucose 87 Calcium 9.5 Magnesium 1.9 Total Bilirubin 0.4 AST 24 ALT 20 Alkaline Phosphatase 75 Total Protein 7.5 Albumin 4.5 Globulin 3.0 Albumin/Globulin Ratio 1.5 Lipase 47 PD Medical Decision Making - ED course ED course: 68-year-old woman presented with laceration to left brow And fall from standing with loss of consciousness at 3 AM. She is well- appearing with benign neurologic exam. Her laceration was cleaned and repaired with Steri-Strips since it is well-approximated and shallow. ct head negative. Return precautions given. Plan to follow-up with primary care provider. Departure - Departure Disposition: 01 Home, Self Care Clinical Impression: Laceration, Fall from standing, Head injury Condition: Stable Instructions: ED Head Injury Closed Comments: You were seen in the emergency department for head injury. Your ct of the head was normal. Please follow-up with your primary care provider and return to the emergency department if you have any new or worsening symptoms or other concerns.
== END 2024-03-02 21:04 | disposition home or self-care (01) ==
LOC: ED 16:32
DX: S06.9X9A Unspecified intracranial injury with loss of consciousness of unspecified duration, initial encounter (principal); S01.81XA Laceration without foreign body of other part of head, initial encounter; W01.198A Fall on same level from slipping, tripping and stumbling with subsequent striking against other object, initial encounter
CPT/HCPCS: 36415; 80053; 83690; 83735; 85025; 99283; 99284